=== PATIENT | female | born 1955 | race Caucasian/White ===

== ENCOUNTER 2020-07-11 08:49 | Emergency (ER) | payer OTHER ==
[~2020-07-11] VITALS: Ht 149.9 cm; Wt 51.3 kg
[2020-07-11 09:00] VITALS: BP 127/87
[2020-07-11 10:18] LABS: Basophils # (auto) 0 10 ^3/uL (0-0.2); Basophils % (auto) 0.1 % (0.0-2.0); Eosinophils # (auto) 0 10 ^3/uL (0-0.8); Hematocrit 40.8 % (36.0-46.0); Hemoglobin 13.6 g/dL (12.2-16.2); Lymphocytes # (auto) 0.9 10 ^3/uL (0.4-5.4); Lymphocytes % (auto) 10.8 % (10.0-50.0); Mean Corpuscular Hemoglobin 29.9 pg (28.0-32.0); Mean Corpuscular Hgb Conc. 33.2 g/dL (32.0-36.0); Mean Corpuscular Volume 90.1 fL (80.0-100.0); Monocytes # (auto) 0.4 10 ^3/uL (0-1.3); Neutrophils # (auto) 6.8 10 ^3/uL (1.6-8.6); Neutrophils % (auto) 84.1 % (37.0-80.0); Platelet Count (auto) 196 10^3/uL (140-450); Red Blood Cells 4.53 10^6/uL (4.0-5.20); White Blood Cell 8.1 10^3/uL (4.4-10.8)
[2020-07-11 10:48] LABS: Alanine Aminotransferase 49 U/L (13-56); Albumin 3.3 g/dL (3.4-5.0); Alkaline Phosphatase 133 U/L (45-117); Anion Gap 8 (5-15); Aspartate Aminotransferase 47 U/L (15-37); BUN/Creatinine Ratio 23.2; Bilirubin, Total 0.3 mg/dL (0.2-1.0); Blood Urea Nitrogen 16 mg/dL (7-18); Calcium 8.7 mg/dL (8.5-10.1); Carbon Dioxide 23 mmol/L (21-32); Chloride 107 mmol/L (98-107); GFR African American 109 mL/min; GFR Non-African American 90 mL/min; Glucose 105 mg/dL (74-106); Potassium 3.6 mmol/L (3.5-5.1); Sodium 138 mmol/L (136-145); Total Protein 8.7 g/dL (6.4-8.2)
== END 2020-07-11 11:19 | disposition home or self-care (01) ==
LOC: EDBD 08:49 → ER 08:49
DX: U07.1 COVID-19 (principal); J06.9 Acute upper respiratory infection, unspecified; J45.909 Unspecified asthma, uncomplicated; E11.9 Type 2 diabetes mellitus without complications
CPT/HCPCS: 36415; 71046; 80053; 84484; 85025; 93005; 99285; J7030